=== PATIENT | female | born 1960 | race African-American/Black ===

== ENCOUNTER → 2020-05-09 | Outpatient (CLI) | payer OTHER ==
--- NOTE | 2020-05-09 14:47 | RAD ---
Examination: Limited left breast ultrasound. INDICATION: Screening recall for left breast nodular density. COMPARISON: Bilateral screening mammogram of 04/14/2020. TECHNIQUE: Grayscale and color Doppler imaging of the left breast in the area of mammographic interest in the upper outer quadrant was performed in addition to sonographic survey of the retroareolar left breast and left axilla. FINDINGS: At the left 2:00 position 9 cm from the nipple is an oval, parallel orientation circumscribed hypoechoic mass with echogenic hilum measuring 8 mm that correlates in size, shape, and position with the nodular density recalled from screening. By ultrasound, it corresponds to a benign intramammary lymph node. Sonographic survey of the left axilla and subareolar breast revealed no additional abnormal findings. IMPRESSION: Sonographically benign intramammary lymph node at the left 2:00 position 9 cm from the nipple. No findings of malignancy. Recommend return to routine screening next due in one year. BI-RADS Category 2 Benign findings Patient entered into the reminder system with target due date for next mammogram.
== END | disposition home or self-care (01) ==
LOC: US 13:50
PROVIDERS: ATTEND Nurse Practitioner Gerontology
DX: R92.8 Other abnormal and inconclusive findings on diagnostic imaging of breast (principal); N63.21 Unspecified lump in the left breast, upper outer quadrant
CPT/HCPCS: 76641